=== PATIENT | female | born 1935 | race Caucasian/White ===

== ENCOUNTER → 2020-03-15 17:18 | Outpatient (BNVA) | payer MEDICARE, OTHER, SELFPAY | PROVIDERS: Family Provider Family Medicine; PCP Registered Nurse; Visit Provider Surgery | DX: Z11.59 Encounter for screening for other viral diseases (principal) | CPT/HCPCS: 87635 ==

== ENCOUNTER 2020-03-18 09:40 | Day surgery (SDC) | payer MEDICARE, OTHER, SELFPAY ==
[2020-03-16 13:26] VITALS: BMI 22.3
[2020-03-18 09:45] VITALS: BP 104/65; PULSE 88; RESP 18; TEMP 36.6; O2SAT 98
[2020-03-18] MEDS: sodium chloride 0.9% 1,000 ML 30 ML IV (09:52)
--- NOTE | 2020-03-18 09:53 | ECG_ITS ---
[facility] Test Date: 2020-03-18 Pat Name: Juliana Dubose Department: Room: Gender: Female Treasury Associate: [place] : 1935 Requested By: Denice Riley Order Number: [id number] Reading MD: NICO DE LA ROSA Measurements Intervals [place] Rate: 79 P: 55 [place]: 126 QRS: -21 QRSD: 87 T: 26 QT: 387 QTc: 445 Interpretive Statements SINUS RHYTHM POSSIBLE LEFT ATRIAL ENLARGEMENT [-0.1mV P WAVE IN V1/V2] SEPTAL MYOCARDIAL INFARCTION [40+ ms Q WAVE IN V1/V2], PROBABLY OLD Compared to ECG 05/26/2018 18:49:39 Short [place] interval no longer present Myocardial infarct finding still present Electronically Signed On 03-19-2020 19:34:50 SOUP MIXER by NICO DE LA ROSA [email or web address]
--- NOTE | 2020-03-18 09:55 | ANES.PREANE2 ---
Pre-Anesthetic Assessment Pre-Anesthetic Assessment: Height/Weight: Height 1.63 m Weight 58.967 kg Preop Diagnosis: Ascending colon mass Proposed Procedure: Operation Date: 03/18/20 10:15 Proposed Procedures p Colonoscopy 46424 K63.89(Not Applicable) - Senthil Williamson MD Familial anesthetic complications: None Was Beta Mikki taken within 24 hours: N/A Last intake: NPO > 8 hrs Social: Social History: No alcohol and No tobacco Exam: Pre-Anes Outpt Exam: alert, oriented x 3, clear to auscultation bilaterally and regular rate & rhythm Airway: Cervical ROM: WNL MP: 2 Dentition: Full Pulmonary: Comments: COVID positive - patient asymptomatic CV/HEM: Comments: NSTEMi n 2018 - Cath was clear, but EF was 31%, grade II diastolic dysfunction, mod- severe TVR, mod MVR, mild pulm HTN (45 mmHg) Patient states her EF is now about 25% and that her heart doctor in [place] isn't going to any interventions until her colonic mass is figured out. Metabolic: Comments: B cell lymphoma Anesthetic Plan: ASA status: 4 Anesthesia: MAC Other: Patient very high risk d/t poor ejection fraction (25%) and she was informed of this; she would like to remain full code. Will give minimal versed/fentanyl for procedure to minimize any administration of propofol. Risk of > 500 ml blood loss (7ml/kg in children): No Meds/Allergies Current Medications: Current Medications Generic Name Dose Route Start Last Admin Trade Name Freq PRN Reason Stop Dose Admin Sodium Chloride 1,000 mls @ 30 ml s/hr 03/18/20 09:45 03/18/20 09:52 Sodium Chloride 0.9% IV 03/19/20 09:44 30 mls/hr .Q24H TICO Administration PFSH Anesthesia PFSH: Medical History (Updated 03/15/20 @ 16:23 by Senthil Williamson MD) B-cell lymphoma Congestive heart failure Surgical History H/O colonoscopy over 10 yrs ago H/O lymph node excision B cell lymphoma History of tonsillectomy Hx of cholecystectomy 08/2019 Family History Other CAD (coronary artery disease) Denies family history of Diabetes Anesthesia complication Bleeding disorder Cancer Hypertension Social History Smoking and tobacco status: never smoked Alcohol intake: never Household members: spouse Marital status: Current occupational status: retired History of recent travel: Yes (to [place]) Data Anesthesia Cardiac Studies: No Data to Display
--- NOTE | 2020-03-18 11:58 | W.PM.OPSUD ---
Surgery/Procedure H&P Update DATE OF PROCEDURE: March 18, 2020 DATE H&P PERFORMED: 03/15/20 H&P UPDATE INFORMATION: I have reviewed H&P completed within last 30 days, I have examined patient prior to procedure and No changes to prior documentation PREOP DIAGNOSIS: Ascending colon mass PLANNED PROCEDURE: Operation Date: 03/18/20 10:15 Proposed Procedures p Colonoscopy 20370 K63.89(Not Applicable) - Senthil Williamson MD
--- NOTE | 2020-03-18 13:10 | SUR.OPER ---
large snare not used
[2020-03-18 13:18] VITALS: BP 122/74; PULSE 87; RESP 18; TEMP 37.1; O2SAT 98
[2020-03-18] MEDS: ondansetron 2 mg/ML SDV 2 mL 4 MG IVP (13:30)
--- NOTE | 2020-03-18 13:37 | ANE.PACU2 ---
Inpatient post-anesthesia follow up: Airway intact: Yes Vital signs: Temperature 98.8 F Pulse Rate 87 Respiratory Rate 18 Blood Pressure 122/74 Pulse Oximetry 98 Oxygen Delivery Me thod Room Air Oxygen Flow Rate Fraction of Inspir ed Oxygen Hydration adequate: Yes Nausea and vomiting: No Pain level: 1 Mental status: Baseline
[2020-03-18 13:38] VITALS: BP 128/71; PULSE 87; RESP 18; O2SAT 97
--- NOTE | 2020-03-18 13:57 | PC.NURSE ---
pt stated nausea after procedure. given 4mg zofran IVP. pt stated no nausea 10 mins after administration.
== END 2020-03-18 13:45 | disposition home or self-care (01) ==
PROVIDERS: PCP Family Medicine; Visit Provider Surgery
PROC: 0DJD8ZZ Inspection of Lower Intestinal Tract, Via Natural or Artificial Opening Endoscopic (ICD-10-PCS; CPT 45330; principal; 2020-03-18 10:15)
DX: K63.89 Other specified diseases of intestine (principal); K57.30 Diverticulosis of large intestine without perforation or abscess without bleeding
CPT/HCPCS: 12345; 45330; 93005; J2405; J3490; J7030

== ENCOUNTER 2020-04-21 09:22 | Outpatient (CLI) | payer MEDICARE, OTHER, SELFPAY ==
--- NOTE | 2020-04-21 10:00 | FL_ITS ---
WS: [id number] FL barium enema [id number] REASON FOR EXAM: K63.89 Other specified diseases of intestine FLUOROSCOPY TIME: 2.1 minutes FINDINGS: Despite 2 attempts, the second using only water to move the residual barium, the patient was not able to retain the enema long enough to evaluate the right colon. Patient does have a long area of mild narrowing secondary to hypertrophic change of the diverticulosi s. There are multiple sigmoid colon diverticuli. The portions of the left colon that were seen were u nremarkable. Discussion: The workforce management consultant film of the abdomen demonstrates a very prominent abnormal gas collection in the right uppe r quadrant. It has the appearance of air in the lumen of the segment of colon with markedly thickened manley. This finding would be compatible with the right colon cancer suggested on previous MRI. The M RI was not available for review at the time of this examination. Colonoscopy and biopsy would be the most direct method for diagnosis. If this, for whatever reason, i s not feasible the following is a suggestion. Patient would undergo standard barium enema prep. Patient would come to the radiology Department afte r the prep and ingest CT oral contrast. After a [address] scan of the abdomen and pelvis woul d be obtained with intravenous contrast. This would demonstrate the colon cancer and provide any lester omic information needed by surgery. It also would demonstrate the abnormality if it were not in the c olon. It would also evaluate for liver metastasis and local lymph nodes and the degree of invasion. FL/FL barium enema [id number] IMPRESSION: Incomplete examination, unable to reach the right colon as above.
== END 2020-04-21 09:23 | disposition home or self-care (01) ==
LOC: RAD 09:26
PROVIDERS: PCP Family Medicine; Visit Provider Surgery
DX: K63.89 Other specified diseases of intestine (principal)
CPT/HCPCS: 74270

== ENCOUNTER 2020-05-03 09:31 | Outpatient (CLI) | payer MEDICARE, OTHER, SELFPAY ==
[2020-05-03] MEDS: iohexol 300 mg/mL 50 mL Btl PO (10:54)
--- NOTE | 2020-05-03 11:00 | CT_ITS ---
WS: [id number] CT ABDOMEN PELVIS TECHNIQUE: Noncontrast CT of the abdomen and pelvis with coronal and sagittal reformatted images. CLINICAL INFORMATION: K63.89 - Other specified diseases of intestine COMPARISON: MRI February 27, 2020 MRI 2018. Recent barium enema. DLP: 1080.[address] scans at [facility] use at least one of these dose optimization techniques: automat ed exposure control; mA and/or kV adjustment per patient size (includes targeted exams where dose is matched to clinical indication); or iterative reconstruction. FINDINGS: Again seen is the focal segment of diffuse transmural colonic wall thickening involving the distal on e third transverse colon and extending over approximately 9.6 cm most compatible with neoplasm. Hepat ic flexure and cecum are normal in appearance. Sigmoid diverticulosis. No evidence of acute divertic ulitis. Dense pelvic phleboliths. 4 mm noncalcified nodule left lower lobe. This is unchanged since . Small low-attenuation les ion right hepatic lobe peripherally measuring 1.5 cm nonspecific but unchanged since the MRI November 21, 2017 and likely represents hepatic cyst or hemangioma. This can be followed up with ultrasound. Chol ecystectomy clips. Adrenal glands are normal. Fatty atrophy of the pancreas. Normal noncontrast splee n. Normal GE junction. Normal caliber abdominal aorta. Aortic calcification. Prominent periaortic lymph nodes measuring 7 to 8 mm. No hydronephrosis in either kidney. Large left renal cyst is unchanged since the recent MRI. Increase d attenuation lesions in both kidneys appear to represent hemorrhagic cystS on the recent MRI. Renal lesions to be followed up with ultrasound. Fat-containing left greater than right inguinal hernias. No free fluid in the pelvis. No pelvic or in guinal lymphadenopathy. Slight anterolisthesis L5 on S1. CT/CT abdomen pelvis wo con [id number] IMPRESSION: 1. 10.0 cm segment of colonic circumferential thickening with narrowing involv ing the distal third transverse colon most consistent with neoplasm. 2. Noncalcified nodule left lower lobe measuring 4 mm unchanged since the CT . 3. Prominent periaortic lymph nodes measuring 7-8 mm. These are nonspecific an d metastatic disease not entirely excluded. 4. Bilateral renal cysts and hemorrhagic cysts appear unchanged since the rece nt MRI. Largest left renal cyst measuring 8.5 x 7.0 CM. Recommend interval emilee al surveillance with ultrasound. 5. Low-attenuation lesion right hepatic lobe laterally measuring 1.5 cm appear s stable since the MRI in 2018 and likely represents a small cyst or cavernous hemangioma. 6. Sigmoid diverticulosis. 7. Cholecystectomy.
== END 2020-05-03 09:32 | disposition home or self-care (01) ==
LOC: RADWPI 09:37
PROVIDERS: PCP Family Medicine; Visit Provider Surgery
DX: K63.89 Other specified diseases of intestine (principal); Z90.49 Acquired absence of other specified parts of digestive tract; K57.30 Diverticulosis of large intestine without perforation or abscess without bleeding; K76.9 Liver disease, unspecified; N28.1 Cyst of kidney, acquired; R91.1 Solitary pulmonary nodule
CPT/HCPCS: 74176; Q9967